=== PATIENT | male | born 1945 | race Caucasian/White ===

== ENCOUNTER → 2024-03-19 | Outpatient (CLI) | payer MEDICARE, SELFPAY ==
--- NOTE | 2024-03-19 15:50 | RAD_ITS ---
EXAM: XR CHEST, 2 VIEWS CLINICAL INDICATION: papilledema, Hemorrhage TECHNIQUE: Frontal and lateral views of the chest. COMPARISON: No relevant prior studies available. FINDINGS: LUNGS AND PLEURAL SPACES: Unremarkable. No consolidation or edema. No pneumothorax. No effusion. HEART: Unremarkable. Cardiac silhouette not enlarged. MEDIASTINUM: Central airways and mediastinal contour are unremarkable. BONES/JOINTS: Unremarkable. No acute fracture. SOFT TISSUES: Unremarkable. RAD/Chest PA and Lateral IMPRESSION: No radiographic evidence of acute cardiopulmonary disease. Electronically Signed: Carlos Joshi MD at 22:31 EDT ,
[2024-03-19 17:38] LABS: Absolute Lymphocyte Count 2.19 X10^3/uL (0.83-4.51); Absolute Neutrophil Count 4.8 X10^3/uL (2.0-7.7); Basophil# 0.09 X10^3/uL; Basophil% 1.1 % (0-1); Eosinophil# 0.76 X10^3/uL; Eosinophils% 8.9 % (0-5); Lymphocyte # 2.19 X10^3/ul (0.83-4.51); Lymphocyte % 25.6 % (19-41); Mean Corp Hgb Conc 31.6 g/dL (32-36); Mean Corpuscular Hgb 29.9 pg (27.0-32.0); Mean Corpuscular Volume 94.8 fL (80-94); Mean Platelet Vol. 9.3 fl (6.2-12.0); Monocyte# 0.67 X10^3/uL; Monocyte% 7.8 % (0-10); NRBC Flagged by Analyzer 0 % (0-5); Neutrophil # 4.78 X10^3/uL (2.7-7.7); Neutrophil % 55.8 % (47-70); Platelet Count 274 K/mm3 (150-450); RBC Distribution Width CV 12.7 % (11.6-14.6); RBC Distribution Width SD 44.1 fl (35.1-43.9); Red Blood Count 4.01 M/mm3 (4.6-6.2); White Blood Count 8.6 K/mm3 (4.4-11.0)
[2024-03-19 18:01] LABS: Erythrocyte Sedimentation Rate 20 mm/hr (0-20)
[2024-03-19 18:03] LABS: CRP < 2.90 mg/L (0.0-3.0)
== END | disposition home or self-care (01) ==
LOC: RAD.FUTURE 15:47 → MTLAB 15:48
PROVIDERS: PCP Family Medicine; Referring Provider Ophthalmology; Visit Provider Ophthalmology
DX: H47.10 Unspecified papilledema (principal)
CPT/HCPCS: 36415; 71046; 85025; 85652; 86140

== ENCOUNTER → 2024-03-22 | Outpatient (CLI) | payer MEDICARE, SELFPAY ==
--- NOTE | 2024-03-22 16:56 | MRI_ITS ---
We are attempting to reach an attending provider to discuss findings. An addendum with communication details will be sent when the communication is complete. EXAM: MR ORBITS WITHOUT AND WITH INTRAVENOUS CONTRAST CLINICAL INDICATION: OPTIC DISC EDEMA, RT EYE TECHNIQUE: Multiplanar and multisequence MR images of the orbits without and with intravenous contrast. CONTRAST: 27 cc of Clariscan IV. COMPARISON: No relevant prior studies available. 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 Optic globes are unremarkable.. Unremarkable optic nerve sheath and nerves. Extra-ocular muscles are unremarkable. OPTIC CHIASM: Unremarkable. Unremarkable chiasm and post chiasmatic tracts. SELLA: Unremarkable. Pituitary gland is normal in size and signal. Normal sella Turcica and suprasellar structures. CAVERNOUS SINUSES: Unremarkable. SINUSES: Unremarkable as visualized. Clear. SOFT TISSUES: See above. VASCULATURE: Unremarkable. Superior ophthalmic veins are symmetric. 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 No discrete fluid collection or mass. Electronically Signed: Valentin Ennis MD at 5:13 EDT ,
[2024-03-22 17:33] LABS: EGFR FINGERSTICK > 60.0000 mL/min (>60)
== END | disposition home or self-care (01) ==
PROVIDERS: PCP Family Medicine; Referring Provider Ophthalmology; Visit Provider Ophthalmology
DX: H47.10 Unspecified papilledema (principal)
CPT/HCPCS: 70543; A9575